=== PATIENT | male | born 1950 | race Caucasian/White ===

== ENCOUNTER 2020-08-05 08:40 | Outpatient (CLI) | payer MEDICARE, OTHER, SELFPAY ==
--- NOTE | ~2020-08-05 | CT_ITS ---
EXAMINATION: CT abdomen pelvis w con DATE: 08/05/2020 09:28 INDICATION: Intermittent abdominal pain. TECHNIQUE: Computed tomography (CT) of the abdomen and pelvis was performed with 100 mL Omnipaque 350 intravenous contrast. Automated exposure control and iterative reconstruction technique were employe d. The dose-length product was 799.99 mGy-cm. COMPARISON: CT abdomen and pelvis 07/22/2018 FINDINGS: The visualized portions of the lung bases demonstrate mild atelectasis. No pleural effusion . The heart size is normal. No pericardial effusion. There is a small sliding hiatal hernia. The live r is normal. There is a 6 mm mass in the gallbladder that may be a stone, sludge, or benign polyp. Th e spleen, pancreas, adrenal glands, and kidneys are normal. There is a left inguinal hernia containin g fat. The prostate is mildly enlarged. There are no dilated loops of bowel. The appendix is not visu alized. There are no pathologically enlarged lymph nodes. There is an umbilical hernia containing fat . There is no free intraperitoneal fluid. There is moderate lumbar spondylosis. IMPRESSION: 1. Small sliding hiatal hernia. 2. Umbilical hernia and left inguinal hernia containing fat. Reviewed, dictated and finalized at location A.
== END 2020-08-05 08:41 | disposition home or self-care (01) ==
PROVIDERS: PCP Emergency Medicine; Visit Provider Emergency Medicine
DX: R10.84 Generalized abdominal pain (principal); R14.0 Abdominal distension (gaseous); K44.9 Diaphragmatic hernia without obstruction or gangrene; K42.9 Umbilical hernia without obstruction or gangrene; K40.90 Unilateral inguinal hernia, without obstruction or gangrene, not specified as recurrent
CPT/HCPCS: 74177; Q9967

== ENCOUNTER → 2021-08-20 08:22 | Outpatient (CLI) | payer MEDICARE, OTHER, SELFPAY ==
--- NOTE | ~2021-08-20 | US_ITS ---
EXAMINATION: US abdomen limited DATE: 08/20/2021 08:58 INDICATION: Generalized abdominal pain. TECHNIQUE: Multiple grayscale and Doppler ultrasound images of the abdomen were obtained. COMPARISON: CT abdomen and pelvis 08/05/2020 FINDINGS: The visualized portions of the head, body, and tail of the pancreas are normal. There is di ffuse hepatic steatosis. There is normal flow in main portal vein. The gallbladder is normal in size and contains sludge. No gallstones, gallbladder wall thickening, or sonographic Fraire sign. The comm on duct is normal and measures 4 mm. IMPRESSION: 1. Gallbladder sludge. No evidence of acute cholecystitis. 2. Diffuse hepatic steatosis. Reviewed, dictated and finalized at location B.
== END ==
PROVIDERS: PCP Emergency Medicine; Visit Provider Surgery
DX: R93.2 Abnormal findings on diagnostic imaging of liver and biliary tract (principal); K76.0 Fatty (change of) liver, not elsewhere classified
CPT/HCPCS: 76705

== ENCOUNTER 2022-12-15 12:10 | Outpatient (CLI) | payer MEDICARE, OTHER, SELFPAY ==
[2022-12-15 13:29] LABS: Hematocrit 44.7 % (42.0-52.0); Hemoglobin 15.6 g/dL (14.0-18.0); Mean Corpuscular HGB Conc 34.9 g/dl (32-36); Mean Corpuscular Hemoglobin 30.8 pg (26-34); Mean Corpuscular Volume 88.3 fl (80-100); Mean Platelet Volume 10.3 fl (7.4-10.4); Platelet Count Result 271 k/mm3 (150-375); Red Blood Count 5.06 M/mm3 (4.6-6.20); Red Cell Distribution Width 12.7 % (11.5-14.5); White Blood Count 8.9 K/mm3 (4.5-10.0)
[2022-12-15 13:45] LABS: Alanine Aminotransferase 40 U/L (6-50); Albumin Level 4.5 g/dL (3.5-5.1); Alkaline Phosphatase 73 U/L (38-126); Anion Gap 4 mmol/L (8-16); Aspartate Amino Transferase 35 U/L (17-59); Blood Urea Nitrogen 16 mg/dL (9-20); Calcium 9.2 mg/dL (8.4-10.2); Carbon Dioxide 30 mmol/L (22-30); Chloride 103 mmol/L (98-107); Estimated Glomerular Filt Rate > 60; Glucose 99 mg/dL (65-110); Lipase 82 U/L (23-300); Potassium 4.1 mmol/L (3.4-5.0); Sodium 137 mmol/L (137-145)
[2022-12-15 14:01] LABS: Iron 89 ug/dL (49-181)
[2022-12-15 14:12] LABS: Prostate Specific Antigen 0.3 ng/mL (< OR = 4.0); Thyroid Stimulating Hormone 0.791 uIU/mL (0.465-4.680)
[2022-12-15 14:15] LABS: Percent Iron Saturation 31 % (20-50)
[2022-12-15 14:18] LABS: Free T4 Free Thyroxine 1.11 ng/mL (0.78-2.19)
[2022-12-19 03:57] LABS: Tissue Transglutaminase IgA Ab <1.0 U/mL (<15.0)
== END 2022-12-15 12:11 | disposition home or self-care (01) ==
PROVIDERS: PCP Family Medicine
DX: R10.9 Unspecified abdominal pain (principal); R61 Generalized hyperhidrosis; Z80.6 Family history of leukemia; Z12.5 Encounter for screening for malignant neoplasm of prostate; F45.8 Other somatoform disorders
CPT/HCPCS: 36415; 80053; 83540; 83550; 83690; 84153; 84439; 84443; 85027; 86364; G0103

== ENCOUNTER 2022-12-21 14:13 | Outpatient (CLI) | payer MEDICARE, OTHER, SELFPAY ==
--- NOTE | ~2022-12-21 | CT_ITS ---
EXAMINATION: CT abdomen pelvis w con DATE: 12/21/2022 14:39 INDICATION: Abdominal pain TECHNIQUE: Computed tomography (CT) of the abdomen and pelvis was performed with 100 mL Omnipaque-350 intravenous contrast. Automated exposure control and iterative reconstruction technique were employe d. The dose-length product was 878.12 mGy-cm. COMPARISON: 08/05/2020 FINDINGS: Mild dependent atelectasis in the bilateral lower lobes. Heart size is normal. No pericardial or pleu ral effusion. Small sliding-type hiatal hernia. Focal hepatic steatosis at the ligamentum teres. A fe w tiny calcified gallstones along the dependent wall of the normal gallbladder. No intra or extra hep atic biliary ductal dilation. Small calcified splenic nodule consistent with old granulomatous diseas e. Pancreas, bilateral adrenal glands and kidneys are normal. Small fat-containing left inguinal valentina ia. No abnormal bowel wall thickening. The appendix is not again visualized. No pericecal inflammator y change to suggest acute appendicitis. No free intraperitoneal gas or fluid. No pathologically enlar ged abdominal or pelvic lymphadenopathy. There is mild wall thickening the bladder which could be due to partially decompressed state although there is also some stranding in adjacent fat and could not exclude cystitis. Mild to moderate lower lumbar predominant spondylosis. IMPRESSION: 1. Mild bladder wall thickening with mild surrounding stranding which could be seen with cystitis. Co rrelate with urinalysis. 2. Small sliding-type hiatal hernia. 3. Cholelithiasis. 4. Small fat-containing umbilical hernia. Reviewed, dictated and finalized at location A. IMPRESSION: 1. Mild bladder wall thickening with mild surrounding stranding which could be seen with cystitis. Correlate with urinalysis. 2. Small sliding-type hiatal hernia. 3. Cholelithiasis. 4. Small fat-containing umbilical hernia.
== END 2022-12-21 14:14 | disposition home or self-care (01) ==
PROVIDERS: PCP Emergency Medicine
DX: R10.9 Unspecified abdominal pain (principal); R61 Generalized hyperhidrosis; K80.20 Calculus of gallbladder without cholecystitis without obstruction; K44.9 Diaphragmatic hernia without obstruction or gangrene; K42.9 Umbilical hernia without obstruction or gangrene
CPT/HCPCS: 74177; Q9967

== ENCOUNTER 2023-09-08 12:21 | Outpatient (CLI) | payer MEDICARE, OTHER, SELFPAY ==
--- NOTE | ~2023-09-08 | US_ITS ---
Limited Abdominal Sonogram: Real-time sonographic imaging of the right upper quadrant was performed. Clinical History: Epigastric pain Findings: The liver appears echogenic, with no evidence of mass lesion or bile duct dilatation. Main portal vein demonstrates normal direction of flow. The gallbladder is well distended, and contains s mall echogenic structure, which is not mobile. The common bile duct measures 2 mm. The visualized pa ncreas, aorta, and IVC are unremarkable. Impression: Diffuse fatty infiltration of the liver. Small nonmobile gallstone versus gallbladder wall polyp. Reviewed, dictated and finalized at location M. Impression: Diffuse fatty infiltration of the liver. Small nonmobile gallstone versus gallbladder wall polyp.
== END 2023-09-08 12:22 ==
LOC: MICIMG 12:23
DX: R17 Unspecified jaundice (principal); R93.2 Abnormal findings on diagnostic imaging of liver and biliary tract
CPT/HCPCS: 76705